=== PATIENT | female | born 1995 | race Caucasian/White ===

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

== ENCOUNTER 2017-02-09 14:54 | Emergency (ER) | payer BC ==
[2017-02-09] MEDS ORDERED: NS 1,000 ML IV ONE (14:58)
[2017-02-09] MEDS ORDERED: LORazepam 2 MG/ML INJ IVP ONE (14:58)
--- NOTE | 2017-02-09 15:00 | EDPHY ---
HPI/HX/ROS/PE/MDM Narrative: CHIEF COMPLAINT: Near syncope HPI: This patient is a 21 year old female arriving via EMS from [place] following a near syncopal event shortly prior to arrival. This is her third such episode in the past two weeks, and was witnessed by staff at her residence [place]. Her previous two events were full syncopal episodes, but this time, she did not lose consciousness. Staff at the dorm summoned EMS. Per EMS report, she complains of dizziness for several weeks with intermittent nausea and vomiting. EMS established an IV and administered 4mg Zofran in transport, which relieved her nausea. Vitals were stable in transport, though her BP was initially 94/48 before a 500mL fluid bolus. BGL 96. The patient has not had anything to eat or drink today because she felt nauseous, but she has not vomited. She has a headache as well, and felt like she was going to pass out prior to arrival. She is wearing an orthopedic boot on her right leg for "ligament damage" but has not been evaluated by a healthcare provider for this complaint. No fever, diarrhea, chest pain, shortness of breath, urinary complaints, or other associated symptoms. REVIEW OF SYSTEMS: Aside from elements discussed in the HPI, a comprehensive 10-point review of systems was reviewed and is negative. PMH: Anxiety (Lexapro), Asthma (Singulair), Anemia, Oral contraceptives ( [place]) SOCIAL HISTORY: Originally from [place]. Freshman at [employer]. PHYSICAL EXAM: General: Patient is alert, anxious, tremulous. Very quiet, odd affect. ENT:Eyes are normal to inspection. ENT inspection normal. Neck: Normal inspection. Full range of motion. Respiratory:No respiratory distress. Breath sounds normal bilaterally. Cardiovascular: Regular tachycardia. Strong peripheral pulses. Normal cap refill. Abdomen:The abdomen is nontender to palpation. There are no peritoneal signs. There are normal bowel sounds. Back: Normal to inspection. No tenderness to palpation. Skin: Normal color. No rash. Warm and dry. Extremities: Orthopedic boot in place on right leg. Normal appearance. Full range of motion. Neuro: Oriented x3. Normal motor function. Normal sensory function. ED Course: 14:55 Met EMS at bedside. 21 year old female with history of anxiety, asthma, and anemia presents following a near syncopal episode shortly prior to arrival. She is quite anxious during my interview, tachycardic and tremulous. Exam otherwise unremarkable. Plan to administer 1mg IV Ativan for anxiety relief. Plan for EKG , labs including CBC, chemistries, Troponin. Administered 1L IV NS. EKG was ordered and interpreted by myself. Please see [employer] system for official reading. Sinus rhythm, rate 66. 16:00 Reviewed laboratory studies. Troponin negative. Patient is anemic today, which she states is chronic for her. BHCG negative. MDM: This is a young healthy woman who presents with near syncope. Given negative workup, I suspect this is likely related to a combination of chronic anemia and volume depletion, as patient states she hasn't had anything to eat or drink at all today. The etiology of her nausea is also somewhat unclear but I suspect it has something to do with what appears to be severe anxiety, as patient was almost unable to communicate with us on arrival. This improved significantly with ativan, and patient was treated with IVNS. On re-evaluation, patient feels much better, is able to eat juice and crackers without difficulty and is ambulatory with normal vitals. Her ECG is negative and there are no signs of arrhythmia. I impressed on patient and her family members the importance of establishing a PCP as soon as possible to perform further evaluation. I see no signs of medical emergency at this time. We discussed strict return precautions. - Data Points Laboratory Results: Laboratory Results 02/09/17 15:00 02/09/17 15:00 02/09/17 02/09/17 02/09/17 15:00 15:00 15:00 WBC 6.85 10^3/uL 10^3/uL (3.80-9.50) RBC 4.82 10^6/uL 10^6/uL (4.18-5.33) Hgb 10.7 g/dL L g/dL (12.6-16.3) Hct 35.0 % L % (38.0-47.0) MCV 72.6 fL L fL (81.5-99.8) MCH 22.2 pg L pg (27.9-34.1) MCHC 30.6 g/dL L g/dL (32.4-36.7) RDW 17.4 % H % (11.5-15.2) Plt Count 413 10^3/uL H 10^3/uL (150-400) MPV 9.1 fL fL (8.7-11.7) Neut % (Auto) 66.6 % % (39.3-74.2) Lymph % (Auto) 24.7 % % (15.0-45.0) [place] % (Auto) 7.0 % % (4.5-13.0) Eos % (Auto) 0.7 % % (0.6-7.6) Baso % (Auto) 0.7 % % (0.3-1.7) Nucleat RBC Rel Count 0.0 % % (0.0-0.2) Absolute Neuts (auto) 4.56 10^3/uL 10^3/uL (1.70-6.50) Absolute Lymphs (auto) 1.69 10^3/uL 10^3/uL (1.00-3.00) Absolute Monos (auto) 0.48 10^3/uL 10^3/uL (0.30-0.80) Absolute Eos (auto) 0.05 10^3/uL 10^3/uL (0.03-0.40) Absolute Basos (auto) 0.05 10^3/uL 10^3/uL (0.02-0.10) Absolute Nucleated RBC 0.00 10^3/uL 10^3/uL (0-0.01) Immature Gran % 0.3 % % (0.0-1.1) Immature Gran # 0.02 10^3/uL 10^3/uL (0.00-0.10) Sodium 145 mEq/L H mEq/L (134-144) Potassium 4.8 mEq/L mEq/L (3.5-5.2) Chloride 107 mEq/L mEq/L (97-110) Carbon Dioxide 22 mEq/l mEq/l (22-31) Anion Gap 16 mEq/L mEq/L (8-16) BUN 10 mg/dL mg/dL (7-23) Creatinine 0.8 mg/dL mg/dL (0.6-1.0) Estimated GFR > 60 Glucose 79 mg/dL mg/dL (70-100) Calcium 10.3 mg/dL mg/dL (8.5-10.4) Troponin I < 0.012 ng/mL ng/mL (0.000-0.034) Beta HCG, Qual NEGATIVE Medications Given: Discontinued Medications Sodium Chloride (Ns) 1,000 mls @ 0 mls/hr IV EDNOW ONE; Wide Open PRN Reason: Protocol Stop: 02/09/17 14:59 Last Admin: 02/09/17 15:07 Dose: 1,000 mls Lorazepam (Ativan Injection) 1 mg IVP EDNOW ONE Stop: 02/09/17 14:59 Last Admin: 02/09/17 15:07 Dose: 1 mg General Initial Vital Signs: Initial Vital Signs Temperature (C) 36.8 C 02/09/17 15:00 Heart Rate 75 02/09/17 15:00 Respiratory Rate 18 02/09/17 15:00 Blood Pressure 117/72 02/09/17 15:00 O2 Sat (%) 99 02/09/17 15:00 O2 Delivery Mode Room Air Allergies/Adverse Reactions: No Known Allergies Allergy (Unverified 12/09/16 14:16) Home Medications: Medication Instructions Recorded Lexapro 12/09/16 Singulair 12/09/16 Departure - Departure Clinical Impression: Near syncope Instructions: Syncope (ED), Near Syncope (ED) Additional Instructions: 1. Be sure to eat well and stay well hydrated. 2. Follow up with your primary care provider for symptoms unresolved in 2-3 days. 3. Return to the emergency department for repeat episodes of fainting, severe headache, uncontrollable vomiting, chest pain, shortness of breath, fever, or other worsening of condition. Referrals: MAYNOR Leonard,. [Clinic] - As per Instructions Report Scribed for: Carlos La Report Scribed by: Kia Powers Date of Report: 02/09/17 Time of Report: 15:10 Physician Review and Approval Statement: Portions of this note were transcribed by an ED scribe. I personally performed the history, physical exam, and medical decision making; and confirm the accuracy of the information in the transcribed note.
[2017-02-09 15:02] VITALS: TEMP 98.2
[2017-02-09 15:09] LABS: % IMMATURE GRANULYOCYTES 0.3 % (0.0-1.1); ABSOLUTE IMMATURE GRANULOCYTES 0.02 10^3/uL (0.00-0.10); ADD DIFF? NO; ADD MORPH? NO; ADD SCAN? NO; ATYPICAL LYMPHOCYTE FLAG 50 (0-99); FRAGMENT RBC FLAG 20 (0-99); HEMOGLOBIN 10.7 g/dL (12.6-16.3); LEFT SHIFT FLG 0 (0-99); LIPEMIA HEMOLYSIS FLAG 80 (0-99); MEAN CELL HEMOGLOBIN 22.2 pg (27.9-34.1); MEAN CELL HEMOGLOBIN CONCENTR. 30.6 g/dL (32.4-36.7); MEAN CELL VOLUME 72.6 fL (81.5-99.8); MEAN PLATELET VOLUME 9.1 fL (8.7-11.7); PLATELET CLUMPS FLAG 10 (0-99); PLATELET COUNT 413 10^3/uL (150-400); RED BLOOD CELL COUNT 4.82 10^6/uL (4.18-5.33); RED CELL DISTRIBUTION WIDTH 17.4 % (11.5-15.2)
[2017-02-09 15:20] LABS: ANION GAP 16 mEq/L (8-16); CALCIUM 10.3 mg/dL (8.5-10.4); CARBON DIOXIDE 22 mEq/l (22-31); CHLORIDE 107 mEq/L (97-110); CREATININE 0.8 mg/dL (0.6-1.0); GLOMERULAR FILTRATION RATE > 60; GLUCOSE 79 mg/dL (70-100); POTASSIUM 4.8 mEq/L (3.5-5.2); SODIUM 145 mEq/L (134-144)
--- NOTE | 2017-02-09 15:22 | CPEKG ---
Heart Rate: 66 RR Interval: 909 P-R Interval: 116 QRSD Interval: 94 QT Interval: 396 QTC Interval: 415 P [place]: -39 QRS [place]: 58 T Wave [place]: 44 EKG Severity - NORMAL ECG - EKG Impression: SINUS RHYTHM Electronically Signed By: Carlos La 09-Feb-2017 21:52:42
[2017-02-09 15:33] LABS: TROPONIN I < 0.012 ng/mL (0.000-0.034)
[2017-02-09 17:19] LABS: COLOR PALE YELLOW; LEUKOCYTE ESTERASE,URINE NEGATIVE (NEGATIVE); NITRITE,URINE NEGATIVE (NEGATIVE)
[2017-02-09 17:33] VITALS: BP 117/78; PULSE 66; RESP 16; O2SAT 95
== END 2017-02-09 17:34 | disposition home or self-care (01) ==
LOC: EDUNIT#
DX: R55 Syncope and collapse (principal); J45.909 Unspecified asthma, uncomplicated; E86.9 Volume depletion, unspecified
CPT/HCPCS: 96374; J2060

== ENCOUNTER 2018-06-11 11:25 | Emergency (ER) | payer BC ==
--- NOTE | 2018-06-11 11:36 | EDPHY ---
H & P Stated Complaint: N/V since waking up this AM. Drank alcohol last night. Time Seen by Provider: 06/11/18 11:36 - Personal History Current Tetanus Diphtheria and Acellular Pertussis (TDAP): Unsure - Medical/Surgical History Hx Asthma: Yes Hx Chronic Respiratory Disease: No Hx Diabetes: No Hx Cardiac Disease: No Hx Renal Disease: No Hx Cirrhosis: No Hx Alcoholism: No Hx HIV/AIDS: No Hx Splenectomy or Spleen Trauma: No Other PMH: depression, anxiety, asthma, anemia - Social History Smoking Status: Never smoked Constitutional: Initial Vital Signs Temperature (C) 36.6 C 06/11/18 11:26 Heart Rate 80 06/11/18 11:26 Respiratory Rate 18 06/11/18 11:26 Blood Pressure 129/98 H 06/11/18 11:26 O2 Sat (%) 96 06/11/18 11:26 O2 Delivery Mode Room Air Allergies/Adverse Reactions: No Known Allergies Allergy (Unverified 12/09/16 14:16) Home Medications: Medication Instructions Recorded Lexapro 12/09/16 Singulair 12/09/16 Ondansetron Odt [Zofran Odt 4 mg 4 mg PO Q4 PRN #10 tab 06/11/18 (RX)] Medical Decision Making - Diagnostics Imaging Results: Imaging Impressions Abdomen CT 06/11/18 11:40 Impression: Normal appendix. No bowel obstruction or localized intra-abdominal inflammatory process. Findings discussed with Emergency Department physician, Isaias Nguyễn MD, on , 12:58. Imaging: Discussed imaging studies w/ radiology transporter Radiologist, I viewed and interpreted images myself ED Course/Re-evaluation: CHIEF COMPLAINT: Nausea and vomiting HISTORY OF PRESENT ILLNESS: The patient is a 22 y/o female with a history of asthma and anxiety complaining of nausea, vomiting, and abdominal pain onset this morning. The patient stated that she drank alcohol last night, but her hangovers are never this severe. She also denies having abdominal pain after drinking alcohol in the past. her symptoms have not improved she decided to present to the emergency department. She denies history of abdominal surgery. No fever, headache, body aches, lightheadedness, chest pain, heart palpitations, shortness of breath, cough, abdominal pain, urinary or bowel complaints, numbness, paresthesias. REVIEW OF SYSTEMS: A comprehensive 10 system review of systems is otherwise negative aside from elements mentioned in the history of present illness and medical decision making. PHYSICAL EXAM: HR, BP, O2 Sat, RR. Temp noted General Appearance: Lying in bed in position, alert, well hydrated, appropriate, and non-toxic appearing. Head: Atraumatic without scalp tenderness or obvious injury Eyes: Pupils equal, round, reactive to light and accommodation, EOMI, no trauma , no injection. Ears: Clear bilaterally, no perforation, normal landmarks Nose: Atraumatic, no rhinorrhea, clear. Throat: There is no erythema or exudates, no lesions, normal tonsils, mucus membranes moist. Neck: Supple, 2+ carotid upstroke, nontender, no lymphadenopathy. Respiratory: No retractions, no distress, no wheezes, and no accessory muscle use. Lungs are clear to auscultation bilaterally. Cardiovascular: Regular rate and rhythm, no murmurs, rubs, or gallops. Bilateral carotid, radial, dorsalis pedis, and posterior tibial pulses intact. Good capillary refill all extremities. Gastrointestinal: Positive McBurney's point with peritoneal signs. Abdomen is soft, non-distended, no masses, no rebound, no guarding. Musculoskeletal: Normal active ROM of all extremities, atraumatic. Neurological: Alert, appropriate, and interactive. The patient has normal DTRs and non-focal cranial nerves, motor, sensory, and cerebellar exam. Skin: No rashes, good turgor, no nodules on palpation. Past medical history: Depression, anxiety, asthma, anemia Past surgical history: Denies Family history: Denies Social history: Friend at bedside, student at , lives in [place] DIAGNOSTICS/PROCEDURES/CRITICAL CARE TIME: Abdominopelvic CT: No acute findings. DIFFERENTIAL DIAGNOSIS: The differential diagnosis for the patient's abdominal pain included but was not limited to gastroenteritis, ovarian cyst, pelvic inflammatory disease, ovarian torsion, urinary tract infection, ectopic , cholecystitis, and appendicitis. MEDICAL DECISION MAKING: The patient is a 22 y/o female with a history of asthma and anxiety presenting with nausea, vomiting, and abdominal pain onset this morning. The patient stated that she drank alcohol last night, but her hangovers are never this severe and she never has abdominal pain with a hangover. On exam she has positive McBurney's point with peritoneal signs. She is also lying in the bed in a position. Labs and abdominopelvic CT ordered; 1L IV NS, 0.5mg IV Dilaudid, 30mg IV Toradol, and 4mg IV Zofran. 1257: I spoke with the radiologist who reports there are no acute findings on the patient's abdominopelvic CT. Patient most likely has gastritis after drinking alcohol last night. 1310: Reassessed patient and discussed laboratory and imaging studies. She does not feel any better after medications. Additional 1L IV NS, 0.5mg IV Dilaudid, 12.5mg IV Phenergan, and GI cocktail administered. 1345: Patient has not received her additional medications for 30 minutes. Once she receives her meds, she should be ready for discharge. 1443: Reassessed patient, she is feeling better and would like to go home. I have prescribed her Zofran and advised her to follow up with a PCP. Return precautions provided; patient is comfortable with this plan. - Data Points Laboratory Results: Laboratory Results 06/11/18 11:49 06/11/18 11:49 06/11/18 06/11/18 06/11/18 11:57 11:49 11:49 WBC RBC Hgb POC Hgb 15.3 gm/dL gm/dL (12.6-16.3) Hct POC Hct 45 % % (38-47) MCV MCH MCHC RDW Plt Count MPV Neut % (Auto) Lymph % (Auto) [place] % (Auto) Eos % (Auto) Baso % (Auto) Nucleat RBC Rel Count Absolute Neuts (auto) Absolute Lymphs (auto) Absolute Monos (auto) Absolute Eos (auto) Absolute Basos (auto) Absolute Nucleated RBC Immature Gran % Immature Gran # POC Sodium 141 mEq/L mEq/L (135-145) Sodium 138 mEq/L mEq/L (135-145) POC Potassium 3.4 mEq/L mEq/L (3.3-5.0) Potassium 3.8 mEq/L mEq/L (3.5-5.2) POC Chloride 105 mEq/L mEq/L (97-110) Chloride 105 mEq/L mEq/L (97-110) Carbon Dioxide 19 mEq/l L mEq/l (22-31) POC Total CO2 18 mEq/L L mEq/L (22-31) Anion Gap 14 mEq/L mEq/L (6-14) POC BUN 10 mg/dL mg/dL (7-23) BUN 11 mg/dL mg/dL (7-23) Creatinine 0.7 mg/dL mg/dL (0.6-1.0) POC Creatinine 0.7 mg/dL mg/dL (0.6-1.0) Estimated GFR > 60 Glucose 91 mg/dL mg/dL (70-100) POC Glucose 96 mg/dL mg/dL (70-100) Calcium 9.6 mg/dL mg/dL (8.5-10.4) Total Bilirubin 0.4 mg/dL mg/dL (0.1-1.4) Conjugated Bilirubin 0.3 mg/dL mg/dL (0.0-0.5) Unconjugated Bilirubin 0.1 mg/dL mg/dL (0.0-1.1) AST 31 IU/L IU/L (14-46) ALT 50 IU/L IU/L (9-52) Alkaline Phosphatase 48 IU/L IU/L (38-126) Total Protein 7.4 g/dL g/dL (6.3-8.2) Albumin 4.4 g/dL g/dL (3.5-5.0) Lipase 57 IU/L IU/L (23-300) Beta HCG, Qual NEGATIVE 06/11/18 11:49 WBC 9.31 10^3/uL 10^3/uL (3.80-9.50) RBC 4.90 10^6/uL 10^6/uL (4.18-5.33) Hgb 14.3 g/dL g/dL (12.6-16.3) POC Hgb Hct 42.3 % % (38.0-47.0) POC Hct MCV 86.3 fL fL (81.5-99.8) MCH 29.2 pg pg (27.9-34.1) MCHC 33.8 g/dL g/dL (32.4-36.7) RDW 13.2 % % (11.5-15.2) Plt Count 289 10^3/uL 10^3/uL (150-400) MPV 8.9 fL fL (8.7-11.7) Neut % (Auto) 77.4 % H % (39.3-74.2) Lymph % (Auto) 18.6 % % (15.0-45.0) [place] % (Auto) 3.0 % L % (4.5-13.0) Eos % (Auto) 0.2 % L % (0.6-7.6) Baso % (Auto) 0.5 % % (0.3-1.7) Nucleat RBC Rel Count 0.0 % % (0.0-0.2) Absolute Neuts (auto) 7.20 10^3/uL H 10^3/uL (1.70-6.50) Absolute Lymphs (auto) 1.73 10^3/uL 10^3/uL (1.00-3.00) Absolute Monos (auto) 0.28 10^3/uL L 10^3/uL (0.30-0.80) Absolute Eos (auto) 0.02 10^3/uL L 10^3/uL (0.03-0.40) Absolute Basos (auto) 0.05 10^3/uL 10^3/uL (0.02-0.10) Absolute Nucleated RBC 0.00 10^3/uL 10^3/uL (0-0.01) Immature Gran % 0.3 % % (0.0-1.1) Immature Gran # 0.03 10^3/uL 10^3/uL (0.00-0.10) POC Sodium Sodium POC Potassium Potassium POC Chloride Chloride Carbon Dioxide POC Total CO2 Anion Gap POC BUN BUN Creatinine POC Creatinine Estimated GFR Glucose POC Glucose Calcium Total Bilirubin Conjugated Bilirubin Unconjugated Bilirubin AST ALT Alkaline Phosphatase Total Protein Albumin Lipase Beta HCG, Qual Medications Given: Discontinued Medications Al Hydroxide/Mg Hydroxide (Maalox Susp) 30 ml PO ONCE ONE Stop: 06/11/18 13:14 Last Admin: 06/11/18 14:07 Dose: 30 ml Hydromorphone HCl (Dilaudid) 0.5 mg IVP EDNOW ONE Stop: 06/11/18 11:41 Last Admin: 06/11/18 11:57 Dose: 0.5 mg Hydromorphone HCl (Dilaudid) 0.5 mg IVP EDNOW ONE Stop: 06/11/18 13:14 Last Admin: 06/11/18 14:06 Dose: 0.5 mg Hyoscyamine Sulfate (Levsin, Hyomax-Sl) 0.25 mg PO ONCE ONE Stop: 06/11/18 13:14 Last Admin: 06/11/18 13:58 Dose: 0.25 mg Sodium Chloride (Ns) 1,000 mls @ 0 mls/hr IV EDNOW ONE; Wide Open PRN Reason: Protocol Stop: 06/11/18 11:41 Last Admin: 06/11/18 11:54 Dose: 1,000 mls Sodium Chloride (Ns) 1,000 mls @ 0 mls/hr IV EDNOW ONE; Wide Open PRN Reason: Protocol Stop: 06/11/18 13:14 Last Admin: 06/11/18 13:58 Dose: 1,000 mls Famotidine/Sodium Chloride (Pepcid 20 Mg (Premix)) 50 mls @ 200 mls/hr IV EDNOW ONE Stop: 06/11/18 13:27 Last Admin: 06/11/18 14:03 Dose: 50 mls Ketorolac Tromethamine (Toradol) 30 mg IVP EDNOW ONE Stop: 06/11/18 11:41 Last Admin: 06/11/18 11:56 Dose: 30 mg Lidocaine (Lidocaine 2% Viscous) 15 ml PO ONCE ONE Stop: 06/11/18 13:14 Last Admin: 06/11/18 14:07 Dose: 15 ml Ondansetron HCl (Zofran) 4 mg IVP EDNOW ONE Stop: 06/11/18 11:41 Last Admin: 06/11/18 11:55 Dose: 4 mg Promethazine HCl (Phenergan) 12.5 mg IVP EDNOW ONE Stop: 06/11/18 13:14 Last Admin: 06/11/18 14:01 Dose: 12.5 mg Point of Care Test Results: Chemistry 06/11/18 11:57 POC Sodium 141 mEq/L mEq/L (135-145) POC Potassium 3.4 mEq/L mEq/L (3.3-5.0) POC Chloride 105 mEq/L mEq/L (97-110) POC Total CO2 18 mEq/L L mEq/L (22-31) POC BUN 10 mg/dL mg/dL (7-23) POC Creatinine 0.7 mg/dL mg/dL (0.6-1.0) POC Glucose 96 mg/dL mg/dL (70-100) ISTAT H&H 06/11/18 11:57 POC Hgb 15.3 gm/dL gm/dL (12.6-16.3) POC Hct 45 % % (38-47) Departure - Departure Disposition: Home, Routine, Self-Care Clinical Impression: Nausea & vomiting Qualifiers: Vomiting type: unspecified Vomiting Intractability: intractable Qualified Code( s): R11.2 - Nausea with vomiting, unspecified Condition: Good Instructions: Acute Nausea and Vomiting (ED) Additional Instructions: 1. Increase fluid intake. 2. Take 4mg oral Zofran as needed for nausea. 3. Follow-up with your primary doctor within 72 hours. 4. Return to the Emergency Department for fever, chest pain, shortness of breath , increasing pain, or other worsening of condition. Referrals: [facility] Leonard,. [Clinic] - As per Instructions Prescriptions: Ondansetron Odt [Zofran Odt 4 mg (RX)] 4 mg PO Q4 PRN #10 tab PRN Reason: Nausea/Vomiting, Use 1st Report Scribed for: Isaias Nguyễn Report Scribed by: Bushra Sarkar Date of Report: 06/11/18 Time of Report: 11:38
[2018-06-11] MEDS ORDERED: HYDROmorphONE/DILAUDID 2 MG/ML INJ IVP ONE ×2 (11:40→13:13)
[2018-06-11] MEDS ORDERED: ONDANSETRON 4 MG/2 ML VIAL IVP ONE (11:40)
[2018-06-11] MEDS ORDERED: NS 1,000 ML IV ONE ×2 (11:40→13:13)
[2018-06-11] MEDS ORDERED: KETOROLAC 30 MG/1 ML SDV IVP ONE (11:40)
[2018-06-11 12:00] LABS: PLATELET COUNT 289 10^3/uL (150-400)
[2018-06-11] MEDS ORDERED: IOPAMIDOL (ISOVUE-300) 100 ML BTL ONE (12:23)
[2018-06-11] MEDS ORDERED: LIDOCAINE 2% VISCOUS 15 ML UDCUP PO ONE (13:13)
[2018-06-11] MEDS ORDERED: PROMETHAZINE HCL 25 MG/ML INJ IVP ONE (13:13)
[2018-06-11] MEDS ORDERED: HYOSCYAMINE SULFATE 0.125 MG TAB PO ONE (13:13)
[2018-06-11] MEDS ORDERED: FAMOTIDINE 20 MG/NACL 50 ML IV ONE (13:13)
[2018-06-11] MEDS ORDERED: MAG HYDROX/AL HYDROX/SIMETH 30 ML UDCUP PO ONE (13:13)
[2018-06-11 14:42] VITALS: BP 127/78
== END 2018-06-11 14:42 | disposition home or self-care (01) ==
DX: R11.2 Nausea with vomiting, unspecified (principal); E86.9 Volume depletion, unspecified; F32.9 Major depressive disorder, single episode, unspecified; F41.9 Anxiety disorder, unspecified; J45.909 Unspecified asthma, uncomplicated
CPT/HCPCS: 82435-PO; 82565-PO; 82947-PO; 84132-PO; 84295-PO; 84520-PO; 85014-ER; 96374; J1170; J1885; J2405; J2550; Q9967

== ENCOUNTER 2018-07-15 12:46 | Emergency (ER) | payer BC ==
[2018-07-15] MEDS ORDERED: FAMOTIDINE 20 MG/NACL 50 ML IV ONE (13:57)
[2018-07-15] MEDS ORDERED: NS 1,000 ML IV ONE (13:57)
[2018-07-15] MEDS ORDERED: ONDANSETRON 4 MG/2 ML VIAL IVP ONE (13:57)
[2018-07-15] MEDS ORDERED: HYDROmorphONE/DILAUDID 2 MG/ML INJ IVP ONE (14:09)
[2018-07-15 14:17] LABS: PLATELET COUNT 278 10^3/uL (150-400)
--- NOTE | 2018-07-15 14:17 | EDPHY ---
H & P Time Seen by Provider: 07/15/18 13:54 HPI/ROS: HPI Upper abdominal pain, nausea. 22-year-old female by private vehicle. This patient reports that she has had epigastric and right upper quadrant abdominal pain onset this morning shortly after she woke up. She describes this pain as sharp and aching. She states that it was constant but now it comes on more in waves. She has had associated nausea but no vomiting. She denies any urinary complaints. Her last menstrual period was about a month ago. She was seen in our emergency department a month ago for nausea and intractable vomiting. She had a CT abdomen and pelvis with IV contrast at that time. Her appendix is well visualized and was normal. This study was otherwise normal. She states her last bowel movement was yesterday. She describes this as normal. No bloody or melenic stool. No associated diarrhea. Last meal was yesterday evening. ROS: Constitutional: No fever, no chills. No weakness. Eyes: No discharge. No changes in vision. ENT: No sore throat. No nasal congestion or rhinorrhea. Respiratory: No cough. No shortness of breath. Cardiac: No chest pain, no palpitations. Gastrointestinal: As above, no diarrhea. Genitourinary: No hematuria. No dysuria or increased frequency with urination. Musculoskeletal: No back pain. No neck pain. No myalgias or arthralgias. Skin: No rashes. Neurological: No headache. No focal weakness or altered sensation. Past medical history: Depression, anxiety, asthma, anemia. Social history: Nonsmoker. She is currently here by herself. States that she drank alcohol last night but not excessive. Physical Exam: General Appearance: Alert, anxious, she does appear uncomfortable but not in distress. This patient is responding to questions appropriately and in full sentences. This patient appears well-hydrated and well-nourished. Eyes: Pupils equal and round no pallor or injection. No lid edema, erythema or injection. Respiratory: There are no retractions, lungs are clear to auscultation with good air movement bilaterally. Cardiovascular: Regular rate and rhythm. No murmur. Gastrointestinal: Abdomen is soft with vague epigastric and right upper quadrant tenderness on palpation, no masses, bowel sounds normal. No focal tenderness at McBurney's point. No Carcamo sign. Neurological: Motor sensory function is grossly intact. Cranial nerves are normal. Gait is normal. Skin: Warm and dry, no rashes. Musculoskeletal: Neck is supple and nontender. No CVA tenderness on palpation bilaterally. Extremities are symmetrical. All joints range without pain or impingement. Psychiatric: No agitation. No depression. Database: EKG: Imaging: Right upper quadrant ultrasound: Normal. Results were discussed with staff radiologist Dr. Yves Stringer. Procedures: Emergency department course: Triage vital signs reviewed and are normal. IV was placed. She was started on IV normal saline with 1 L to be given over the next hour. She will initially be given 4 mg of IV Zofran, 20 mg of IV Pepcid and 0.5 mg of IV hydromorphone. Right upper quadrant ultrasound will be obtained to review her biliary in gallbladder anatomy. Her presentation is consistent with more of a gastritis, possibly biliary colic. I also feel that there is an anxiety component to her presentation. 3:20 p.m., the patient was re-evaluated, she is feeling much better at this time. She denies any significant pain. Results of her diagnostic workup in the emergency department are reassuring. I feel her presentation is more consistent with a gastritis. She has been under a lot of stress lately and this could be a contributing factor. Repeat abdominal exam she is soft, nontender nondistended. She does feel comfortable being discharged at this time. She will be discharged to home with a friend. Follow-up and return to emergency department precautions have been reviewed with her. All of her questions were answered. She was discharged from the emergency department in good condition. Differential Diagnosis: The differential diagnosis on this patient includes but is not limited to anxiety reaction, gastritis, cholecystitis, biliary colic, pancreatitis. Bowel obstruction, perforated peptic ulcer, appendicitis, volvulus unlikely. This represents a partial list of diagnoses considered. These considerations are based on history, physical exam, past history, reassessment and diagnostic testing. Smoking Status: Never smoked Constitutional: Initial Vital Signs Temperature (C) 36.9 C 07/15/18 13:02 Heart Rate 82 07/15/18 13:02 Respiratory Rate 16 07/15/18 13:02 Blood Pressure 103/82 H 07/15/18 13:02 O2 Sat (%) 97 07/15/18 13:02 O2 Delivery Mode Room Air Allergies/Adverse Reactions: No Known Allergies Allergy (Unverified 07/15/18 13:02) Home Medications: Medication Instructions Recorded Lexapro 12/09/16 Singulair 12/09/16 Fayosim Tablet 07/15/18 Medical Decision Making - Diagnostics Imaging Results: Imaging Impressions Abdomen Ultrasound 07/15/18 14:10 Impression: No cholelithiasis or biliary ductal dilation. Findings and recommendations discussed with Emergency Department physician, Anjali Atkins MD at 14:49 hour, 07/15/2018. Final report concurs with initial preliminary interpretation. - Data Points Laboratory Results: Laboratory Results 07/15/18 13:50 07/15/18 13:50 07/15/18 07/15/18 07/15/18 14:10 13:50 13:50 WBC RBC Hgb Hct MCV MCH MCHC RDW Plt Count MPV Neut % (Auto) Lymph % (Auto) [place] % (Auto) Eos % (Auto) Baso % (Auto) Nucleat RBC Rel Count Absolute Neuts (auto) Absolute Lymphs (auto) Absolute Monos (auto) Absolute Eos (auto) Absolute Basos (auto) Absolute Nucleated RBC Immature Gran % Immature Gran # Sodium 140 mEq/L mEq/L (135-145) Potassium 4.7 mEq/L mEq/L (3.5-5.2) Chloride 104 mEq/L mEq/L (97-110) Carbon Dioxide 24 mEq/l mEq/l (22-31) Anion Gap 12 mEq/L mEq/L (6-14) BUN 13 mg/dL mg/dL (7-23) Creatinine 0.8 mg/dL mg/dL (0.6-1.0) Estimated GFR > 60 Glucose 74 mg/dL mg/dL (70-100) Calcium 9.7 mg/dL mg/dL (8.5-10.4) Total Bilirubin 0.4 mg/dL mg/dL (0.1-1.4) Conjugated Bilirubin 0.4 mg/dL mg/dL (0.0-0.5) Unconjugated Bilirubin 0.0 mg/dL mg/dL (0.0-1.1) AST 32 IU/L IU/L (14-46) ALT 45 IU/L IU/L (9-52) Alkaline Phosphatase 49 IU/L IU/L (38-126) Total Protein 7.9 g/dL g/dL (6.3-8.2) Albumin 4.9 g/dL g/dL (3.5-5.0) Lipase 40 IU/L IU/L (23-300) Beta HCG, Qual NEGATIVE Urine Color YELLOW Urine Appearance CLEAR Urine pH 7.0 (5.0-7.5) Ur Specific [place] 1.024 (1.002-1.030) Urine Protein NEGATIVE (NEGATIVE) Urine Ketones NEGATIVE (NEGATIVE) Urine Blood NEGATIVE (NEGATIVE) Urine Nitrate NEGATIVE (NEGATIVE) Urine Bilirubin NEGATIVE (NEGATIVE) Urine Urobilinogen NEGATIVE EU EU (0.2-1.0) Ur Leukocyte Esterase NEGATIVE (NEGATIVE) Urine RBC 1-3 /hpf /hpf (0-3) Urine WBC 1-3 /hpf /hpf (0-3) Ur Epithelial Cells TRACE /lpf /lpf (NONE-1+) Urine Mucus TRACE /lpf /lpf (NONE-1+) Urine Glucose NEGATIVE (NEGATIVE) 07/15/18 13:50 WBC 5.57 10^3/uL 10^3/uL (3.80-9.50) RBC 5.21 10^6/uL 10^6/uL (4.18-5.33) Hgb 15.4 g/dL g/dL (12.6-16.3) Hct 46.2 % % (38.0-47.0) MCV 88.7 fL fL (81.5-99.8) MCH 29.6 pg pg (27.9-34.1) MCHC 33.3 g/dL g/dL (32.4-36.7) RDW 14.1 % % (11.5-15.2) Plt Count 278 10^3/uL 10^3/uL (150-400) MPV 9.2 fL fL (8.7-11.7) Neut % (Auto) 56.4 % % (39.3-74.2) Lymph % (Auto) 33.6 % % (15.0-45.0) Whitfield % (Auto) 7.4 % % (4.5-13.0) Eos % (Auto) 1.1 % % (0.6-7.6) Baso % (Auto) 1.3 % % (0.3-1.7) Nucleat RBC Rel Count 0.0 % % (0.0-0.2) Absolute Neuts (auto) 3.15 10^3/uL 10^3/uL (1.70-6.50) Absolute Lymphs (auto) 1.87 10^3/uL 10^3/uL (1.00-3.00) Absolute Monos (auto) 0.41 10^3/uL 10^3/uL (0.30-0.80) Absolute Eos (auto) 0.06 10^3/uL 10^3/uL (0.03-0.40) Absolute Basos (auto) 0.07 10^3/uL 10^3/uL (0.02-0.10) Absolute Nucleated RBC 0.00 10^3/uL 10^3/uL (0-0.01) Immature Gran % 0.2 % % (0.0-1.1) Immature Gran # 0.01 10^3/uL 10^3/uL (0.00-0.10) Sodium Potassium Chloride Carbon Dioxide Anion Gap BUN Creatinine Estimated GFR Glucose Calcium Total Bilirubin Conjugated Bilirubin Unconjugated Bilirubin AST ALT Alkaline Phosphatase Total Protein Albumin Lipase Beta HCG, Qual Urine Color Urine Appearance Urine pH Ur Specific [place] Urine Protein Urine Ketones Urine Blood Urine Nitrate Urine Bilirubin Urine Urobilinogen Ur Leukocyte Esterase Urine RBC Urine WBC Ur Epithelial Cells Urine Mucus Urine Glucose Medications Given: Discontinued Medications Hydromorphone HCl (Dilaudid) 0.5 mg IVP EDNOW ONE Stop: 07/15/18 14:10 Last Admin: 07/15/18 14:16 Dose: 0.5 mg Sodium Chloride (Ns) 1,000 mls @ 0 mls/hr IV EDNOW ONE; Wide Open PRN Reason: Protocol Stop: 07/15/18 13:58 Last Admin: 07/15/18 14:03 Dose: 1,000 mls Famotidine/Sodium Chloride (Pepcid 20 Mg (Premix)) 50 mls @ 200 mls/hr IV EDNOW ONE Stop: 07/15/18 14:11 Last Admin: 07/15/18 14:03 Dose: 50 mls Ondansetron HCl (Zofran) 4 mg IVP EDNOW ONE Stop: 07/15/18 13:58 Last Admin: 07/15/18 14:04 Dose: 4 mg Departure - Departure Disposition: Home, Routine, Self-Care Clinical Impression: Abdominal pain, Nausea Condition: Good Instructions: Acute Abdominal Pain (ED) Additional Instructions: Read and follow provided instructions. Follow-up with your primary care physician in 1-2 days for re-evaluation. Take medication as prescribed for nausea. Return to the emergency department for worsening abdominal pain, vomiting and inability to keep fluids down, bloody or black stool or other serious concerns. Referrals: Irene De La Rosa MD [Primary Care Provider] - As per Instructions
[2018-07-15 15:33] VITALS: BP 110/78
== END 2018-07-15 15:52 | disposition home or self-care (01) ==
DX: R10.11 Right upper quadrant pain (principal); R11.0 Nausea; E86.9 Volume depletion, unspecified; F32.9 Major depressive disorder, single episode, unspecified; F41.9 Anxiety disorder, unspecified; J45.909 Unspecified asthma, uncomplicated
CPT/HCPCS: 96374; J1170; J2405